=== PATIENT | male | born 1985 | race Caucasian/White ===

== ENCOUNTER 2025-04-09 14:28 | Emergency (ER) | payer SELFPAY ==
[~2025-04-09] VITALS: Ht 188 cm; Wt 87.0 kg
[2025-04-09 14:33] VITALS: O2SAT 98
[2025-04-09] MEDS ORDERED: AMOX1TAB16 MT (16:39)
[2025-04-09 16:50] VITALS: BP 111/64; PULSE 80; RESP 16; TEMP 36.7; O2SAT 98
== END 2025-04-09 18:25 | disposition home or self-care (01) ==
LOC: ER 14:28
DX: S02.2XXA Fracture of nasal bones, initial encounter for closed fracture (principal); Y09 Assault by unspecified means; Y93.89 Activity, other specified; Y92.89 Other specified places as the place of occurrence of the external cause; Y99.8 Other external cause status
CPT/HCPCS: 70486; 99284